=== PATIENT | female | born 1980 | race Caucasian/White ===

== ENCOUNTER 2017-05-17 17:36 | Emergency (ER) | payer MEDICAID ==
[~2017-05-17] VITALS: Ht 165.1 cm; Wt 67.5 kg
[~2017-05-17 17:36] MED LIST: HYDR-3498 PO; IBUP-1542 PO; MAG-19 PO; OMEP20CA9 PO; ONDA4TAB35 PO; PENI500T PO; PREN1TAB17 PO
[2017-05-17 17:55] VITALS: Ht 165.1 cm; Wt 67.5 kg
[2017-05-17] MEDS ORDERED: SOD CHLORIDE 0.9% 1,000 ML IV STA (19:47)
[2017-05-17] MEDS ORDERED: KETOROLAC 30 MG INJ IV STA (19:47)
[2017-05-17] MEDS ORDERED: DIPHENHYDRAMINE 50 MG INJ IV STA (19:47)
[2017-05-17] MEDS ORDERED: METOCLOPRAMIDE 10 MG INJ IV STA (19:47)
[2017-05-17 20:28] LABS: ADD UMIC YES; UR ASCORBIC ACID NEGATIVE (NEGATIVE); UR BILIRUBIN (Dip) NEGATIVE (NEGATIVE); UR BLOOD (Dip) 2+ mg/dL (NEGATIVE); UR CLARITY CLEAR (CLEAR); UR COLOR YELLOW (YELLOW); UR GLUCOSE (Dip) NEGATIVE (NEGATIVE); UR KETONES (Dip) NEGATIVE (NEGATIVE); UR LEUKOCYTE ESTERASE (Dip) NEGATIVE Leu/ul (NEGATIVE); UR MUCUS MODERATE /HPF (NONE SEEN); UR NITRITE (Dip) NEGATIVE (NEGATIVE); UR RBC 46 /HPF (0-5); UR SPECIFIC GRAVITY (Dip) 1.013 (1.003-1.030); UR SQUAMOUS EPITHELIAL CELL FEW /HPF (FEW); UR TOTAL PROTEIN (Dip) NEGATIVE (NEGATIVE); UR UROBILINOGEN (Dip) NEGATIVE (NEGATIVE)
--- NOTE | 2017-05-17 20:38 | RADRPT ---
PROCEDURE: Noncontrast CT Head. CLINICAL INDICATION: Headache TECHNIQUE: Noncontrast CT of the head was obtained. The administered radiation dose was CTDI vol = 45.01 mGy, DLP = 720.23 mGy-cm. One or more of the following dose reduction techniques were used: Au tomated exposure control, Adjustment of the mA and/or kV according to patient size, or Use of iterat yola reconstruction technique. COMPARISON: There are no similar studies submitted for comparison. FINDINGS: There is no acute intracranial hemorrhage, midline shift, or mass effect. No extra-axial collection is seen. The cerebral lorenzo-white matter differentiation appears preserved. The cerebral sulci and ve ntricles are within normal limits in size and configuration for patient's age. The cerebral attenuat ion is within normal limits. The brainstem and cerebellum are grossly unremarkable. The basal cister ns are preserved. The visualized paranasal sinuses and mastoid air cells are clear. No acute fractur e or suspicious osseous lesion is identified. IMPRESSION: No evidence of an acute intracranial process. Unremarkable noncontrast CT of the brain. RPTAT: AA Physician Carlos Date Time Electronically viewed and signed by Physician Carlos on 05/17/2017 20:38 KRISTAL/
[2017-05-17] MEDS ORDERED: NAPR-260 PO (20:47)
--- NOTE | 2017-05-17 20:47 | ERD ---
ER Documentation Chief Complaint Date/Time DATE: 05/17/17 Chief Complaint Headache HPI The patient is a 37-year-old female who presents to the Emergency Department with complaint of a headache. The patient reports that her pain began at 12:00 pm today, and has become gradually worse since onset. She notes that the pain is mostly localized to the right side of the head, and radiates occipitally. She admits to associated photophobia, phonophobia and nausea, with 5 episodes of nonbilious, nonbloody emesis since onset of the headache. Otherwise, she denies any visual changes, diplopia, blurred vision or vision loss. Denies neck pain or neck stiffness. Denies fevers, sweats, chills, confusion, or change in mentation. Denies diarrhea. Denies dysuria, hematuria, flank pain. Denies any new rashes. The patient notes that she has not experienced a headache similar to this in the past, and therefore presented to the ED for evaluation and pain relief. She took a dose of Tylenol at 2:00 pm today, but has not taken any medication since. No other complaints at this time. ROS All systems reviewed and are negative except as per history of present illness. Medications Home Meds Active Scripts Naproxen* (Naprosyn*) 500 Mg Tablet, 500 MG PO BID Y for PAIN AND/OR INFLAMMATION, #30 TAB Prov:JESSICA GARIBAY PA-C 05/17/17 Ibuprofen* (Motrin*) 600 Mg Tab, 600 MG PO Q6H Y for PAIN AND OR ELEVATED TEMP, #30 TAB Prov:SARAH BETH ISAACS MD 05/11/16 Penicillin V Potassium* (Penicillin V K*) 500 Mg Tab, 500 MG PO QID for 7 Days, TAB Prov:SARAH BETH ISAACS MD 05/11/16 Hydrocodone Bit-Acetaminophen* ([place]*) 5-325 Mg Tab, 1 TAB PO Q6 Y for PAIN, # 20 TAB Prov:PARISH DEL RIO NP 03/01/16 Ondansetron Hcl* (Zofran* ODT) 4 mg -ODT Tab.disper, 4 MG PO Q8 Y for NAUSEA AND /OR VOMITING, #30 TAB Prov:PARISH DEL RIO NP 03/01/16 Magaldrate/Simethicone* (Mylanta*) 355 Ml Susp, 30 ML PO QID Y for GASTROINTESTINAL UPSET, #1 BOTTLE Prov:PARISH DEL RIO. MANAGER SOUND 03/01/16 Omeprazole* (Prilosec*) 20 Mg Capsule.dr, 20 MG PO DAILY, #30 CAP Prov:PARISH DEL RIO. MANAGER SOUND 03/01/16 Omeprazole* (Prilosec*) 20 Mg Capsule.dr, 20 MG PO BID for 30 Days, CAP Prov:COREEN PINO Mayra 03/20/15 Ondansetron Hcl* (Zofran* ODT) 4 mg -ODT Tab.disper, 4 MG PO Q6 Y for NAUSEA AND /OR VOMITING, #10 TAB Prov:COREEN PINO Mayra 03/20/15 Reported Medications Vit-Iron Fumarate-FA ( Tablet) 1 Each Tablet, 1 EACH PO DAILY 01/07/13 Allergies Allergies: Coded Allergies: No Known Drug Allergies (Verified Allergy, Unknown, 11/27/14) PMhx/Soc Medical and Surgical Hx: pt denies Medical Hx, pt denies Surgical Hx History of Surgery: No Anesthesia Reaction: No Hx Neurological Disorder: No Hx Respiratory Disorders: No Hx Cardiac Disorders: No Hx Psychiatric Problems: No Hx Miscellaneous Medical Probl: No Hx Alcohol Use: No Hx Substance Use: No Hx Tobacco Use: No Smoking Status: Never smoker Physical Exam Vitals Vital Signs Date Time Temp Pulse Resp B/P Pulse Ox O2 Delivery O2 Flow Rate FiO2 05/17/17 21:00 98.5 91 20 125/65 98 Room Air 05/17/17 17:55 98.2 70 19 130/77 98 Physical Exam GENERAL: Well-developed, well-nourished, in no acute distress HEENT: Head is normocephalic, atraumatic. No scleral pallor or icterus. Pupils equal, round and reactive to light. Extraocular movements intact. Conjunctiva pink. Moist mucous membranes. NECK: Supple. No masses, no tenderness, no lymphadenopathy. Trachea midline. No nuchal rigidity. Full range of motion. RESPIRATORY: Lungs are clear to auscultation bilaterally. Equal breath sounds. Normal expiratory effort. CARDIOVASCULAR: Regular rate and rhythm. S1 and S2 normal. No murmurs, rubs, or gallops. GASTROINTESTINAL: Abdomen is soft, nontender, and nondistended. BACK: No midline tenderness. EXTREMITIES: No clubbing, cyanosis, or edema. Normal skin perfusion. Moving all extremities. Muscle tone is normal. No focal swelling or erythema. Distal pulses are palpable, 2+ bilaterally. Capillary refill is less than 2 seconds. NEUROLOGIC: The patient is alert, awake, and oriented x 3. No focal neurologic deficits. Cranial nerves II-XII intact. Gait is observed and normal. There is no ataxia. Motor normal in all extremities. Sensation grossly intact. Coordination normal. Speech is normal. Normal pizza driver strength bilaterally. INTEGUMENT: Skin is clean, dry and intact. No rashes, lesions or petechiae present. Normal turgor. PSYCHIATRIC: Appropriate; Cooperative. Results 24 hrs Laboratory Tests Test 05/17/17 20:00 Urine Color YELLOW Urine Clarity CLEAR Urine pH 7.0 Urine Specific [place] 1.013 Urine Ketones NEGATIVEmg/dL Urine Nitrite NEGATIVEmg/dL Urine Bilirubin NEGATIVEmg/dL Urine Urobilinogen NEGATIVEmg/dL Urine Leukocyte Esterase NEGATIVELeu/ul Urine Microscopic RBC 46/HPF Urine Microscopic WBC 2/HPF Urine Squamous Epithelial Cells FEW/HPF Urine Mucus MODERATE/HPF Urine Hemoglobin 2+mg/dL Urine Glucose NEGATIVEmg/dL Urine Total Protein NEGATIVEmg/dl Current Medications Medications (Trade) Dose Ordered Sig/Saira Route PRN Reason Start Time Stop Time Status Last Admin Dose Admin Sodium Chloride (NS) 1,000 ml @ 1,000 mls/hr Q1H STAT IV 05/17/17 19:47 05/17/17 20:46 DC 05/17/17 20:01 Metoclopramide HCl (Reglan) 10 mg ONCE STAT IV 05/17/17 19:47 05/17/17 19:49 DC 05/17/17 20:00 Ketorolac Tromethamine (Toradol) 30 mg ONCE STAT IV 05/17/17 19:47 05/17/17 19:49 DC 05/17/17 20:00 Diphenhydramine HCl (Benadryl) 25 mg ONCE STAT IV 05/17/17 19:47 05/17/17 19:49 DC 05/17/17 20:00 Procedures/[facility] EMERGENCY DEPARTMENT COURSE: The patient's case was reviewed and discussed with Dr. Wade, who agrees with the plan of care including labs, treatment and advancing imaging as appropriate. The patient was stable throughout the ED course. IV access established by nursing staff. Urinalysis was performed. Fluids, Toradol, Reglan, Bendaryl administered. On reevaluation, the patient reports no new complaints, and completely resolved headache. DIAGNOSTIC TESTS AND INTERPRETATION: PROCEDURE: Noncontrast CT Head. CLINICAL INDICATION: Headache TECHNIQUE: Noncontrast CT of the head was obtained. The administered radiation dose was CTDI vol = 45.01 mGy, DLP = 720.23 mGy-cm. One or more of the following dose reduction techniques were used: Automated exposure control, Adjustment of the mA and/or kV according to patient size, or Use of iterative reconstruction technique. COMPARISON: There are no similar studies submitted for comparison. FINDINGS:There is no acute intracranial hemorrhage, midline shift, or mass effect. No extra-axial collection is seen. The cerebral lorenzo-white matter differentiation appears preserved. The cerebral sulci and ventricles are within normal limits in size and configuration for patient's age. The cerebral attenuation is within normal limits. The brainstem and cerebellum are grossly unremarkable. The basal cisterns are preserved. The visualized paranasal sinuses and mastoid air cells are clear. No acute fracture or suspicious osseous lesion is identified. IMPRESSION:No evidence of an acute intracranial process. Unremarkable noncontrast CT of the brain. Physician Carlos Date Time Electronically viewed and signed by Physician Carlos on 05/17/2017 20: 38 MEDICAL DECISION MAKING:This is a 37-year-old female presenting to the emergency department with a headache. The patient had no significant abnormalities on physical examination, exhibited no altered mental status, neurologic deficits or meningeal signs. The differential diagnosis includes, but is not limited to, subarachnoid hemorrhage, intracerebral bleeding, cerebral aneurysm, meningitis, encephalitis, brain abscess, embolic stroke, brain tumor, temporal arteritis, sinusitis, migraine headache, tension headache , acute glaucoma, cluster headache, pseudotumor cerebri, encephalopathy. No acute abnormalities were noted on head CT ordered. Her condition improved during her stay. After rest and administration of Toradol, Benadryl, Reglan and a liter of fluids the patient reports no new complaints and significantly decreased pain. Upon my review and interpretation of the patient's presentation and overall ER course, I believe the patient's symptoms are most consistent with a headache. Suspect benign etiology. Doubt meningitis, patients neck is supple, no fevers, no meningismus. Doubt TBI, no preceding trauma. Doubt subarachnoid hemorrhage, headache was not [id number], neck is supple. Doubt temporal arteritis, no jaw claudication, no visual changes. Doubt acute glaucoma, no consistent visual or ocular symptoms. Doubt mass or CVA based on neurologic examination. At this time, the patient is in stable condition and therefore can be discharged home with a prescription for Naproxen and given strict return precautions for signs of deteriorating or worsening condition. She is advised to follow up with her primary care provider for reevaluation and further management within 2-3 days, or to return to the ER sooner for any worsening symptoms. I shared my medical decision making and plan with the patient at length and in great detail, and the patient verbally understands and agrees with the plan for further observation and care as an outpatient. At the time of discharge, all questions were answered. Departure Diagnosis: Primary Impression: Headache Headache type: unspecified Headache chronicity pattern: acute headache Intractability: not intractable Qualified Code: R51 - Acute nonintractable headache, unspecified headache type Condition: Stable Patient Instructions: Headache, Unspecified, Self-Care for Headaches Additional Instructions: Llame al doctor MAANA y brandie ruddy ANTONY PARA DENTRO DE 2-3 PITTS.Dgale a la secretaria que nosotros le instruimos hacer esta antony.Avise o llame si day condicin se empeora antes de la antony. Regresa aqui si peor o no mejor. JESSICA GARIBAY PA-C May 17, 2017 20:47
[2017-05-17 21:00] VITALS: BP 125/65; PULSE 91; RESP 20; TEMP 98.5
== END 2017-05-17 21:01 | disposition home or self-care (01) ==
LOC: FTE 17:36
DX: R51 Headache (principal)
CPT/HCPCS: 70450; 81001; 96374; 96375; J1200; J1885; J2765; J7030; Z7502

== ENCOUNTER 2017-07-12 19:53 | Emergency (ER) | payer MEDICAID ==
[~2017-07-12] VITALS: Ht 165.1 cm; Wt 69.3 kg
[~2017-07-12 19:53] MED LIST changes: +NAPR-260 PO
[2017-07-12 19:55] VITALS: Ht 165.1 cm; Wt 69.3 kg
[2017-07-12] MEDS ORDERED: IBUP400T22 PO (22:12)
[2017-07-12] MEDS ORDERED: AZIT500T3 PO (22:12)
--- NOTE | 2017-07-12 23:00 | ERD ---
ER Documentation Chief Complaint Chief Complaint c/o bilateral ear pain x 1 wk. No drainage. HPI This is a 37-year-old female presenting to emergency department with bilateral earache, cough, nasal congestion, headache and facial pain 1 week. Patient states she feels congested. Patient has bilateral throbbing earache. No otorrhea. No pruritus. No rash. Cough is dry and nonproductive. Patient also complains of headache and facial pain. Headache is generalized and nonspecific. No weakness or fatigue. No vomiting. No vision changes. No slurred speech. Patient did not take any medications at home. ROS All systems reviewed and are negative except as per history of present illness. Medications Home Meds Active Scripts Ibuprofen* (Motrin*) 400 Mg Tab, 400 MG PO Q6, #30 TAB Prov:BENITO OCAMPO NP 07/12/17 Azithromycin* (Zithromax*) 500 Mg Tablet, 500 MG PO DAILY for 3 Days, TAB Prov:BENITO OCAMPO NP 07/12/17 Naproxen* (Naprosyn*) 500 Mg Tablet, 500 MG PO BID Y for PAIN AND/OR INFLAMMATION, #30 TAB Prov:JESSICA GARIBAY PA-C 05/17/17 Ibuprofen* (Motrin*) 600 Mg Tab, 600 MG PO Q6H Y for PAIN AND OR ELEVATED TEMP, #30 TAB Prov:SARAH BETH ISAACS MD 05/11/16 Penicillin V Potassium* (Penicillin V K*) 500 Mg Tab, 500 MG PO QID for 7 Days, TAB Prov:ASRAH BETH ISAACS MD 05/11/16 Hydrocodone Bit-Acetaminophen* ([place]*) 5-325 Mg Tab, 1 TAB PO Q6 Y for PAIN, # 20 TAB Prov:PARISH DEL RIO NP 03/01/16 Ondansetron Hcl* (Zofran* ODT) 4 mg -ODT Tab.disper, 4 MG PO Q8 Y for NAUSEA AND /OR VOMITING, #30 TAB Prov:PARISH DEL RIO NP 03/01/16 Magaldrate/Simethicone* (Mylanta*) 355 Ml Susp, 30 ML PO QID Y for GASTROINTESTINAL UPSET, #1 BOTTLE Prov:PARISH DEL RIO NP 03/01/16 Omeprazole* (Prilosec*) 20 Mg Capsule.dr, 20 MG PO DAILY, #30 CAP Prov:QUANGADRIANVinita Carcamo NP 03/01/16 Omeprazole* (Prilosec*) 20 Mg Capsule.dr, 20 MG PO BID for 30 Days, CAP Prov:COREEN PINO 03/20/15 Ondansetron Hcl* (Zofran* ODT) 4 mg -ODT Tab.disper, 4 MG PO Q6 Y for NAUSEA AND /OR VOMITING, #10 TAB Prov:COREEN PINO 03/20/15 Reported Medications Vit-Iron Fumarate-FA ( Tablet) 1 Each Tablet, 1 EACH PO DAILY 01/07/13 Allergies Allergies: Coded Allergies: No Known Drug Allergies (Verified Allergy, Unknown, 11/27/14) PMhx/Soc Medical and Surgical Hx: pt denies Medical Hx, pt denies Surgical Hx History of Surgery: No Anesthesia Reaction: No Hx Neurological Disorder: No Hx Respiratory Disorders: No Hx Cardiac Disorders: No Hx Psychiatric Problems: No Hx Miscellaneous Medical Probl: No Hx Alcohol Use: No Hx Substance Use: No Hx Tobacco Use: No Smoking Status: Never smoker Physical Exam Vitals Vital Signs Date Time Temp Pulse Resp B/P Pulse Ox O2 Delivery O2 Flow Rate FiO2 07/12/17 19:55 96.8 63 18 124/79 100 Physical Exam Const: No acute distress, alert Head: Atraumatic Eyes: Normal Conjunctiva, PERRL, EOMs intact. ENT: Normal External Ears, Nose and Mouth. No erythema or exudate posterior pharynx. TMs normal bilaterally. Tenderness to palpation of maxillary and frontal sinuses. Neck: Full range of motion..~ No meningismus. Resp: Clear to auscultation bilaterally. No wheezing, rhonchi or crackles. No stridor or labored breathing Cardio: Regular rate and rhythm, no murmurs Abd: Soft, non tender, non distended. Normal bowel sounds Skin: No petechiae or rashes Back: No midline or flank tenderness Ext: No cyanosis, or edema Neur: Awake and alert, CN intact 2-12 Psych: Normal Mood and Affect Procedures/MDM MDM: This is a 37-year-old female presenting to emerge department with bilateral earache, headache and facial pain 1 week. Patient is afebrile vital signs are stable. No neuro deficits. Patient denies this being the worst headache she is ever had. Patient did not take any medications at home. Patient symptoms most consistent with acute sinusitis. A CT head was done in 2016 that shows no evidence of an acute intracranial process. Unremarkable noncontrast CT of the brain. Vitals remain stable. No neuro deficits. No fevers or chills. No diplopia, loss of vision or blurry vision. No photophobia. No trauma to head or fall. No loss of consciousness. No nausea or vomiting. No confusion or altered mental status. Patient denies ataxic gait , slurred speech, numbness of the face or body, weakness, clumsiness, or incoordination. Low suspicion for CVA, TIA, meningitis, subdural hematoma, intracranial hemorrhage or mass. Differential diagnosis includes but not limited to tension headache, migraine headache, cluster headache, sinus headache, sinusitis, trigeminal neuralgia, herpes zoster and postherpetic neuralgia. Patient is appropriate for outpatient management will be given prescription for Zithromax and Ibuprofen. Instructed patient to follow-up with primary care provider in the next 2-3 days for reassessment. Resources provided. Return to ED for any high fever, chest pain, difficulty breathing, shortness breath, wheezing, vomiting, diarrhea, abdominal pain or any new or worsening symptoms. Patient verbalizes understanding. All questions answered at discharge. Faroese translation used during this encounter. Disclaimer: Inadvertent spelling and grammatical errors are likely due to EHR/ dictation software use and do not reflect on the overall quality of patient care. Also, please note that the electronic time recorded on this note does not necessarily reflect the actual time of the patient encounter. Departure Diagnosis: Primary Impression: Sinusitis Sinusitis location: unspecified location Chronicity: acute Recurrence: non -recurrent Qualified Code: J01.90 - Acute non-recurrent sinusitis, unspecified location Condition: Stable Patient Instructions: Sinus Headache, Sinusitis, Abx Tx [facility] Usted se garcia hecho un examen mdico de control que le indica que no est en ruddy condicin que requiera tratamiento urgente en el Departamento de Emergencia. Un estudio ms profundo y el tratamiento de day condicin pueden esperar sin ningn riesgo hasta que usted sea atendida/o en el consultorio de day mdico o ruddy cl diana. Es responsabilidad suya arreglar ruddy antony para el seguimiento del maria l. MANEJO DE CONDICIONES NO URGENTES EN EL FUTURO 1) Si usted tiene un mdico de atencin primaria: Usted debera llamar a day mdico de atencin primaria antes de venir al departamento de emergencia. Despus de las horas de consultorio, day doctor o day asociado/a est disponible por telfono. El mdico o enfermero de dana en el servicio telefnico puede asesorarle por tiffany medio para atender el problema, o maria l contrario se puede programar ruddy antony. 2) Si usted no tiene un mdico de atencin primaria: Llame al mdico o clnica de referencia que aparece abajo chalino las horas de consultorio para hacer ruddy antony para que le vean. CLINICAS: [facility] [phone] [facility] [phone] [facility] [phone] [facility]. [place] [phone] [facility] [place] [address] [phone] [facility]. [phone] [facility]. [facility] () Usted se garcia hecho un examen mdico de control que le indica que no est en ruddy condicin que requiera tratamiento urgente en el Departamento de Emergencia. Un estudio ms profundo y el tratamiento de day condicin pueden esperar sin ningn riesgo hasta que usted sea atendida/o en el consultorio de day mdico o ruddy cl diana. Es responsabilidad suya arreglar ruddy antony para el seguimiento del maria l. MANEJO DE CONDICIONES NO URGENTES EN EL FUTURO 1) Si usted tiene un mdico de atencin primaria: Usted debera llamar a day mdico de atencin primaria antes de venir al departamento de emergencia. Despus de las horas de consultorio, day doctor o day asociado/a est disponible por telfono. El mdico o enfermero de dana en el servicio telefnico puede asesorarle por tiffany medio para atender el problema, o maria l contrario se puede programar ruddy antony. 2) Si usted no tiene un mdico de atencin primaria: Llame al mdico o condado institucions de referencia que aparece abajo chalino las horas de consultorio para hacer ruddy antony para que le vean. SI USTED NO PUEDE PAGAR PARA NICOLE UN MEDICO puede ir a: [facility] [id number] [place], [place] [id number] [place] [address] [address] [place] [address] [facility] [address] [place] [address] PARA ANA [facility] [address] [place], [place] [id number] Additional Instructions: Llame al doctor MAANA y brandie ruddy ANTONY PARA DENTRO DE 2-3 PITTS.Dgale a la secretaria que nosotros le instruimos hacer esta antony.Avise o llame si day condicin se empeora antes de la natony. Regresa aqui si peor o no mejor. Vuelva a Ed para cualquier fiebre erika, dolor en el pecho, dificultad para respirar, respiracin entrecortada, sibilancias, vmitos, diarrea, dolor abdominal o cualquier sntoma nuevo o empeoramiento. BNEITO OCAMPO NP Jul 12, 2017 23:00
--- NOTE | 2017-07-12 23:00 | ERD ---
ER Documentation Chief Complaint Chief Complaint c/o bilateral ear pain x 1 wk. No drainage. HPI This is a 37-year-old female presenting to emergency department with bilateral earache, cough, nasal congestion, headache and facial pain 1 week. Patient states she feels congested. Patient has bilateral throbbing earache. No otorrhea. No pruritus. No rash. Cough is dry and nonproductive. Patient also complains of headache and facial pain. Headache is generalized and nonspecific. No weakness or fatigue. No vomiting. No vision changes. No slurred speech. Patient did not take any medications at home. ROS All systems reviewed and are negative except as per history of present illness. Medications Home Meds Active Scripts Ibuprofen* (Motrin*) 400 Mg Tab, 400 MG PO Q6, #30 TAB Prov:BENITO OCAMPO NP 07/12/17 Azithromycin* (Zithromax*) 500 Mg Tablet, 500 MG PO DAILY for 3 Days, TAB Prov:BENITO OCAMPO NP 07/12/17 Naproxen* (Naprosyn*) 500 Mg Tablet, 500 MG PO BID Y for PAIN AND/OR INFLAMMATION, #30 TAB Prov:JESSICA GARIBAY PA-C 05/17/17 Ibuprofen* (Motrin*) 600 Mg Tab, 600 MG PO Q6H Y for PAIN AND OR ELEVATED TEMP, #30 TAB Prov:SARAH BETH ISAACS MD 05/11/16 Penicillin V Potassium* (Penicillin V K*) 500 Mg Tab, 500 MG PO QID for 7 Days, TAB Prov:SARAH BETH ISAACS MD 05/11/16 Hydrocodone Bit-Acetaminophen* ([place]*) 5-325 Mg Tab, 1 TAB PO Q6 Y for PAIN, # 20 TAB Prov:PARISH DEL RIO NP 03/01/16 Ondansetron Hcl* (Zofran* ODT) 4 mg -ODT Tab.disper, 4 MG PO Q8 Y for NAUSEA AND /OR VOMITING, #30 TAB Prov:PARISH DEL RIO NP 03/01/16 Magaldrate/Simethicone* (Mylanta*) 355 Ml Susp, 30 ML PO QID Y for GASTROINTESTINAL UPSET, #1 BOTTLE Prov:PARISH DEL RIO NP 03/01/16 Omeprazole* (Prilosec*) 20 Mg Capsule.dr, 20 MG PO DAILY, #30 CAP Prov:QUANGADRIANVinita Carcamo NP 03/01/16 Omeprazole* (Prilosec*) 20 Mg Capsule.dr, 20 MG PO BID for 30 Days, CAP Prov:COREEN PINO 03/20/15 Ondansetron Hcl* (Zofran* ODT) 4 mg -ODT Tab.disper, 4 MG PO Q6 Y for NAUSEA AND /OR VOMITING, #10 TAB Prov:COREEN PINO 03/20/15 Reported Medications Vit-Iron Fumarate-FA ( Tablet) 1 Each Tablet, 1 EACH PO DAILY 01/07/13 Allergies Allergies: Coded Allergies: No Known Drug Allergies (Verified Allergy, Unknown, 11/27/14) PMhx/Soc Medical and Surgical Hx: pt denies Medical Hx, pt denies Surgical Hx History of Surgery: No Anesthesia Reaction: No Hx Neurological Disorder: No Hx Respiratory Disorders: No Hx Cardiac Disorders: No Hx Psychiatric Problems: No Hx Miscellaneous Medical Probl: No Hx Alcohol Use: No Hx Substance Use: No Hx Tobacco Use: No Smoking Status: Never smoker Physical Exam Vitals Vital Signs Date Time Temp Pulse Resp B/P Pulse Ox O2 Delivery O2 Flow Rate FiO2 07/12/17 19:55 96.8 63 18 124/79 100 Physical Exam Const: No acute distress, alert Head: Atraumatic Eyes: Normal Conjunctiva, PERRL, EOMs intact. ENT: Normal External Ears, Nose and Mouth. No erythema or exudate posterior pharynx. TMs normal bilaterally. Tenderness to palpation of maxillary and frontal sinuses. Neck: Full range of motion..~ No meningismus. Resp: Clear to auscultation bilaterally. No wheezing, rhonchi or crackles. No stridor or labored breathing Cardio: Regular rate and rhythm, no murmurs Abd: Soft, non tender, non distended. Normal bowel sounds Skin: No petechiae or rashes Back: No midline or flank tenderness Ext: No cyanosis, or edema Neur: Awake and alert, CN intact 2-12 Psych: Normal Mood and Affect Procedures/MDM MDM: This is a 37-year-old female presenting to emerge department with bilateral earache, headache and facial pain 1 week. Patient is afebrile vital signs are stable. No neuro deficits. Patient denies this being the worst headache she is ever had. Patient did not take any medications at home. Patient symptoms most consistent with acute sinusitis. A CT head was done in 2016 that shows no evidence of an acute intracranial process. Unremarkable noncontrast CT of the brain. Vitals remain stable. No neuro deficits. No fevers or chills. No diplopia, loss of vision or blurry vision. No photophobia. No trauma to head or fall. No loss of consciousness. No nausea or vomiting. No confusion or altered mental status. Patient denies ataxic gait , slurred speech, numbness of the face or body, weakness, clumsiness, or incoordination. Low suspicion for CVA, TIA, meningitis, subdural hematoma, intracranial hemorrhage or mass. Differential diagnosis includes but not limited to tension headache, migraine headache, cluster headache, sinus headache, sinusitis, trigeminal neuralgia, herpes zoster and postherpetic neuralgia. Patient is appropriate for outpatient management will be given prescription for Zithromax and Ibuprofen. Instructed patient to follow-up with primary care provider in the next 2-3 days for reassessment. Resources provided. Return to ED for any high fever, chest pain, difficulty breathing, shortness breath, wheezing, vomiting, diarrhea, abdominal pain or any new or worsening symptoms. Patient verbalizes understanding. All questions answered at discharge. Persian translation used during this encounter. Disclaimer: Inadvertent spelling and grammatical errors are likely due to EHR/ dictation software use and do not reflect on the overall quality of patient care. Also, please note that the electronic time recorded on this note does not necessarily reflect the actual time of the patient encounter. Departure Diagnosis: Primary Impression: Sinusitis Sinusitis location: unspecified location Chronicity: acute Recurrence: non -recurrent Qualified Code: J01.90 - Acute non-recurrent sinusitis, unspecified location Condition: Stable Patient Instructions: Sinus Headache, Sinusitis, Abx Tx Referrals: [facility] Usted se garcia hecho un examen mdico de control que le indica que no est en ruddy condicin que requiera tratamiento urgente en el Departamento de Emergencia. Un estudio ms profundo y el tratamiento de day condicin pueden esperar sin ningn riesgo hasta que usted sea atendida/o en el consultorio de day mdico o ruddy cl diana. Es responsabilidad suya arreglar ruddy antony para el seguimiento del maria l. MANEJO DE CONDICIONES NO URGENTES EN EL FUTURO 1) Si usted tiene un mdico de atencin primaria: Usted debera llamar a day mdico de atencin primaria antes de venir al departamento de emergencia. Despus de las horas de consultorio, day doctor o day asociado/a est disponible por telfono. El mdico o enfermero de dana en el servicio telefnico puede asesorarle por tiffany medio para atender el problema, o maria l contrario se puede programar ruddy antony. 2) Si usted no tiene un mdico de atencin primaria: Llame al mdico o clnica de referencia que aparece abajo chalino las horas de consultorio para hacer ruddy antony para que le vean. CLINICAS: [facility] [phone] [facility]., [facility] [phone] [address] [facility]. [facility] [phone] [address] [facility]. [place] [id number] [phone] [facility] [place] [address] [phone] [facility]. [phone] [facility]. [facility] () Usted se garcia hecho un examen mdico de control que le indica que no est en ruddy condicin que requiera tratamiento urgente en el Departamento de Emergencia. Un estudio ms profundo y el tratamiento de day condicin pueden esperar sin ningn riesgo hasta que usted sea atendida/o en el consultorio de day mdico o rudyd cl diana. Es responsabilidad suya arreglar ruddy antony para el seguimiento del maria l. MANEJO DE CONDICIONES NO URGENTES EN EL FUTURO 1) Si usted tiene un mdico de atencin primaria: Usted debera llamar a day mdico de atencin primaria antes de venir al departamento de emergencia. Despus de las horas de consultorio, day doctor o day asociado/a est disponible por telfono. El mdico o enfermero de dana en el servicio telefnico puede asesorarle por tiffany medio para atender el problema, o maria l contrario se puede programar ruddy antony. 2) Si usted no tiene un mdico de atencin primaria: Llame al mdico o condado institucions de referencia que aparece abajo chalino las horas de consultorio para hacer ruddy antony para que le vean. SI USTED NO PUEDE PAGAR PARA NICOLE UN MEDICO puede ir a: [facility] [address] [place], [place] [address] [place] [address] [address] [place] [address] [facility] [address] [place] [address] PARA ANA LAURA [facility] [address] [place], [place] [id number] Additional Instructions: Llame al doctor MAANA y brandie ruddy ANTONY PARA DENTRO DE 2-3 PITTS.Dgale a la secretaria que nosotros le instruimos hacer esta antony.Avise o llame si day condicin se empeora antes de la antony. Regresa aqui si peor o no mejor. Vuelva a Ed para cualquier fiebre erika, dolor en el pecho, dificultad para respirar, respiracin entrecortada, sibilancias, vmitos, diarrea, dolor abdominal o cualquier sntoma nuevo o empeoramiento. BENITO OCAMPO NP Jul 12, 2017 23:00
--- NOTE | 2017-07-12 23:00 | ERD ---
ER Documentation Chief Complaint Chief Complaint c/o bilateral ear pain x 1 wk. No drainage. HPI This is a 37-year-old female presenting to emergency department with bilateral earache, cough, nasal congestion, headache and facial pain 1 week. Patient states she feels congested. Patient has bilateral throbbing earache. No otorrhea. No pruritus. No rash. Cough is dry and nonproductive. Patient also complains of headache and facial pain. Headache is generalized and nonspecific. No weakness or fatigue. No vomiting. No vision changes. No slurred speech. Patient did not take any medications at home. ROS All systems reviewed and are negative except as per history of present illness. Medications Home Meds Active Scripts Ibuprofen* (Motrin*) 400 Mg Tab, 400 MG PO Q6, #30 TAB Prov:BENITO OCAMPO NP 07/12/17 Azithromycin* (Zithromax*) 500 Mg Tablet, 500 MG PO DAILY for 3 Days, TAB Prov:BENITO OCAMPO NP 07/12/17 Naproxen* (Naprosyn*) 500 Mg Tablet, 500 MG PO BID Y for PAIN AND/OR INFLAMMATION, #30 TAB Prov:JESSICA GARIBAY PA-C 05/17/17 Ibuprofen* (Motrin*) 600 Mg Tab, 600 MG PO Q6H Y for PAIN AND OR ELEVATED TEMP, #30 TAB Prov:SARAH BETH ISAACS MD 05/11/16 Penicillin V Potassium* (Penicillin V K*) 500 Mg Tab, 500 MG PO QID for 7 Days, TAB Prov:SARAH BETH ISAACS MD 05/11/16 Hydrocodone Bit-Acetaminophen* ([place]*) 5-325 Mg Tab, 1 TAB PO Q6 Y for PAIN, # 20 TAB Prov:PARISH DEL RIO NP 03/01/16 Ondansetron Hcl* (Zofran* ODT) 4 mg -ODT Tab.disper, 4 MG PO Q8 Y for NAUSEA AND /OR VOMITING, #30 TAB Prov:PARISH DEL RIO NP 03/01/16 Magaldrate/Simethicone* (Mylanta*) 355 Ml Susp, 30 ML PO QID Y for GASTROINTESTINAL UPSET, #1 BOTTLE Prov:PARISH DEL RIO NP 03/01/16 Omeprazole* (Prilosec*) 20 Mg Capsule.dr, 20 MG PO DAILY, #30 CAP Prov:QUANGADRIANVinita Carcamo NP 03/01/16 Omeprazole* (Prilosec*) 20 Mg Capsule.dr, 20 MG PO BID for 30 Days, CAP Prov:COREEN PINO 03/20/15 Ondansetron Hcl* (Zofran* ODT) 4 mg -ODT Tab.disper, 4 MG PO Q6 Y for NAUSEA AND /OR VOMITING, #10 TAB Prov:COREEN PINO 03/20/15 Reported Medications Vit-Iron Fumarate-FA ( Tablet) 1 Each Tablet, 1 EACH PO DAILY 01/07/13 Allergies Allergies: Coded Allergies: No Known Drug Allergies (Verified Allergy, Unknown, 11/27/14) PMhx/Soc Medical and Surgical Hx: pt denies Medical Hx, pt denies Surgical Hx History of Surgery: No Anesthesia Reaction: No Hx Neurological Disorder: No Hx Respiratory Disorders: No Hx Cardiac Disorders: No Hx Psychiatric Problems: No Hx Miscellaneous Medical Probl: No Hx Alcohol Use: No Hx Substance Use: No Hx Tobacco Use: No Smoking Status: Never smoker Physical Exam Vitals Vital Signs Date Time Temp Pulse Resp B/P Pulse Ox O2 Delivery O2 Flow Rate FiO2 07/12/17 19:55 96.8 63 18 124/79 100 Physical Exam Const: No acute distress, alert Head: Atraumatic Eyes: Normal Conjunctiva, PERRL, EOMs intact. ENT: Normal External Ears, Nose and Mouth. No erythema or exudate posterior pharynx. TMs normal bilaterally. Tenderness to palpation of maxillary and frontal sinuses. Neck: Full range of motion..~ No meningismus. Resp: Clear to auscultation bilaterally. No wheezing, rhonchi or crackles. No stridor or labored breathing Cardio: Regular rate and rhythm, no murmurs Abd: Soft, non tender, non distended. Normal bowel sounds Skin: No petechiae or rashes Back: No midline or flank tenderness Ext: No cyanosis, or edema Neur: Awake and alert, CN intact 2-12 Psych: Normal Mood and Affect Procedures/MDM MDM: This is a 37-year-old female presenting to emerge department with bilateral earache, headache and facial pain 1 week. Patient is afebrile vital signs are stable. No neuro deficits. Patient denies this being the worst headache she is ever had. Patient did not take any medications at home. Patient symptoms most consistent with acute sinusitis. A CT head was done in 2016 that shows no evidence of an acute intracranial process. Unremarkable noncontrast CT of the brain. Vitals remain stable. No neuro deficits. No fevers or chills. No diplopia, loss of vision or blurry vision. No photophobia. No trauma to head or fall. No loss of consciousness. No nausea or vomiting. No confusion or altered mental status. Patient denies ataxic gait , slurred speech, numbness of the face or body, weakness, clumsiness, or incoordination. Low suspicion for CVA, TIA, meningitis, subdural hematoma, intracranial hemorrhage or mass. Differential diagnosis includes but not limited to tension headache, migraine headache, cluster headache, sinus headache, sinusitis, trigeminal neuralgia, herpes zoster and postherpetic neuralgia. Patient is appropriate for outpatient management will be given prescription for Zithromax and Ibuprofen. Instructed patient to follow-up with primary care provider in the next 2-3 days for reassessment. Resources provided. Return to ED for any high fever, chest pain, difficulty breathing, shortness breath, wheezing, vomiting, diarrhea, abdominal pain or any new or worsening symptoms. Patient verbalizes understanding. All questions answered at discharge. Yoruba translation used during this encounter. Disclaimer: Inadvertent spelling and grammatical errors are likely due to EHR/ dictation software use and do not reflect on the overall quality of patient care. Also, please note that the electronic time recorded on this note does not necessarily reflect the actual time of the patient encounter. Departure Diagnosis: Primary Impression: Sinusitis Sinusitis location: unspecified location Chronicity: acute Recurrence: non -recurrent Qualified Code: J01.90 - Acute non-recurrent sinusitis, unspecified location Condition: Stable Patient Instructions: Sinus Headache, Sinusitis, Abx Tx Referrals: [facility] Usted se garcia hecho un examen mdico de control que le indica que no est en ruddy condicin que requiera tratamiento urgente en el Departamento de Emergencia. Un estudio ms profundo y el tratamiento de day condicin pueden esperar sin ningn riesgo hasta que usted sea atendida/o en el consultorio de day mdico o ruddy cl diana. Es responsabilidad suya arreglar ruddy antony para el seguimiento del maria l. MANEJO DE CONDICIONES NO URGENTES EN EL FUTURO 1) Si usted tiene un mdico de atencin primaria: Usted debera llamar a day mdico de atencin primaria antes de venir al departamento de emergencia. Despus de las horas de consultorio, day doctor o day asociado/a est disponible por telfono. El mdico o enfermero de dana en el servicio telefnico puede asesorarle por tiffany medio para atender el problema, o maria l contrario se puede programar ruddy antony. 2) Si usted no tiene un mdico de atencin primaria: Llame al mdico o clnica de referencia que aparece abajo chalino las horas de consultorio para hacer ruddy antony para que le vean. CLINICAS: [facility] [phone] [facility]., [facility] [phone] [facility]. [facility] [phone] [address] [facility]. [place] [phone] [facility] [place] [address] [phone] [facility]. [phone] [facility]. [facility] () Usted se garcia hecho un examen mdico de control que le indica que no est en ruddy condicin que requiera tratamiento urgente en el Departamento de Emergencia. Un estudio ms profundo y el tratamiento de day condicin pueden esperar sin ningn riesgo hasta que usted sea atendida/o en el consultorio de day mdico o ruddy cl diana. Es responsabilidad suya arreglar ruddy antony para el seguimiento del maria l. MANEJO DE CONDICIONES NO URGENTES EN EL FUTURO 1) Si usted tiene un mdico de atencin primaria: Usted debera llamar a day mdico de atencin primaria antes de venir al departamento de emergencia. Despus de las horas de consultorio, day doctor o day asociado/a est disponible por telfono. El mdico o enfermero de dana en el servicio telefnico puede asesorarle por tiffany medio para atender el problema, o maria l contrario se puede programar ruddy antony. 2) Si usted no tiene un mdico de atencin primaria: Llame al mdico o condado institucions de referencia que aparece abajo chalino las horas de consultorio para hacer ruddy antony para que le vean. SI USTED NO PUEDE PAGAR PARA NICOLE UN MEDICO puede ir a: [facility] [address] [place], [place] [id number] [place] [address] [address] [place] [address] [facility] [address] [place] [address] PARA ANA [facility] [address] [place], [place] [id number] Additional Instructions: Llame al doctor MAANA y brandie ruddy ANTONY PARA DENTRO DE 2-3 PITTS.Dgale a la secretaria que nosotros le instruimos hacer esta antony.Avise o llame si day condicin se empeora antes de la antony. Regresa aqui si peor o no mejor. Vuelva a Ed para cualquier fiebre erika, dolor en el pecho, dificultad para respirar, respiracin entrecortada, sibilancias, vmitos, diarrea, dolor abdominal o cualquier sntoma nuevo o empeoramiento. BENITO OCAMPO NP Jul 12, 2017 23:00
[2017-07-13] MEDS ORDERED: NAPR-260 PO (21:50)
== END 2017-07-12 22:36 | disposition home or self-care (01) ==
LOC: FTE 19:53
DX: J01.90 Acute sinusitis, unspecified (principal)
CPT/HCPCS: 99283

== ENCOUNTER 2017-07-13 21:03 | Emergency (ER) | payer MEDICAID ==
[~2017-07-13] VITALS: Ht 165.1 cm; Wt 69.0 kg
[~2017-07-13 21:03] MED LIST changes: +AZIT500T3 PO; +IBUP400T22 PO
[2017-07-13 21:15] VITALS: Ht 165.1 cm; Wt 69.0 kg
[2017-07-13] MEDS ORDERED: NAPROXEN 500 MG TAB PO STA (21:30)
[2017-07-13] MEDS ORDERED: NAPR-260 PO (21:50)
--- NOTE | 2017-07-13 23:22 | ERD ---
ER Documentation Chief Complaint Chief Complaint breast pain x 1 week HPI 37 year old female presents complaining of moderate bilateral breast pain for 1 week. Patient states that she started her menstrual period today. She denies taking any medications for this today. Denies fever ROS All systems reviewed and are negative except as per history of present illness. Medications Home Meds Active Scripts Naproxen* (Naprosyn*) 500 Mg Tablet, 500 MG PO BID Y for PAIN AND/OR INFLAMMATION, #30 TAB Prov:MARY MEJIA PA-C 07/13/17 Ibuprofen* (Motrin*) 400 Mg Tab, 400 MG PO Q6, #30 TAB Prov:BENITO OCAMPO NP 07/12/17 Azithromycin* (Zithromax*) 500 Mg Tablet, 500 MG PO DAILY for 3 Days, TAB Prov:BENITO OCAMPO NP 07/12/17 Naproxen* (Naprosyn*) 500 Mg Tablet, 500 MG PO BID Y for PAIN AND/OR INFLAMMATION, #30 TAB Prov:JESSICA GARIBAY PA-C 05/17/17 Ibuprofen* (Motrin*) 600 Mg Tab, 600 MG PO Q6H Y for PAIN AND OR ELEVATED TEMP, #30 TAB Prov:SARAH BETH ISAACS MD 05/11/16 Penicillin V Potassium* (Penicillin V K*) 500 Mg Tab, 500 MG PO QID for 7 Days, TAB Prov:SARAH BETH ISAACS MD 05/11/16 Hydrocodone Bit-Acetaminophen* ([place]*) 5-325 Mg Tab, 1 TAB PO Q6 Y for PAIN, # 20 TAB Prov:PARISH DEL RIO NP 03/01/16 Ondansetron Hcl* (Zofran* ODT) 4 mg -ODT Tab.disper, 4 MG PO Q8 Y for NAUSEA AND /OR VOMITING, #30 TAB Prov:PARISH DEL RIO NP 03/01/16 Magaldrate/Simethicone* (Mylanta*) 355 Ml Susp, 30 ML PO QID Y for GASTROINTESTINAL UPSET, #1 BOTTLE Prov:PARISH DEL RIO NP 03/01/16 Omeprazole* (Prilosec*) 20 Mg Capsule.dr, 20 MG PO DAILY, #30 CAP Prov:PARISH DEL RIO NP 03/01/16 Omeprazole* (Prilosec*) 20 Mg Capsule., 20 MG PO BID for 30 Days, CAP Prov:COREEN PINO 03/20/15 Ondansetron Hcl* (Zofran* ODT) 4 mg -ODT Tab.disper, 4 MG PO Q6 Y for NAUSEA AND /OR VOMITING, #10 TAB Prov:COREEN PINO 03/20/15 Reported Medications Vit-Iron Fumarate-FA ( Tablet) 1 Each Tablet, 1 EACH PO DAILY 01/07/13 Allergies Allergies: Coded Allergies: No Known Drug Allergies (Verified Allergy, Unknown, 11/27/14) PMhx/Soc Medical and Surgical Hx: pt denies Medical Hx, pt denies Surgical Hx History of Surgery: No Anesthesia Reaction: No Hx Neurological Disorder: No Hx Respiratory Disorders: No Hx Cardiac Disorders: No Hx Psychiatric Problems: No Hx Miscellaneous Medical Probl: No Hx Alcohol Use: No Hx Substance Use: No Hx Tobacco Use: No Smoking Status: Never smoker Physical Exam Vitals Vital Signs Date Time Temp Pulse Resp B/P Pulse Ox O2 Delivery O2 Flow Rate FiO2 07/13/17 21:15 98.1 71 19 121/74 96 Physical Exam Const: [] Head: Atraumatic Eyes: Normal Conjunctiva ENT: Normal External Ears, Nose and Mouth. Neck: Full range of motion..~ No meningismus. Resp: Clear to auscultation bilaterally Cardio: Regular rate and rhythm, no murmurs Breast: TTP BL breast Abd: Soft, non tender, non distended. Normal bowel sounds Skin: No petechiae or rashes Back: No midline or flank tenderness Ext: No cyanosis, or edema Neur: Awake and alert Psych: Normal Mood and Affect Results 24 hrs Current Medications Medications (Trade) Dose Ordered Sig/Saira Route PRN Reason Start Time Stop Time Status Last Admin Dose Admin Naproxen (Naprosyn) 500 mg ONCE STAT PO 07/13/17 21:30 07/13/17 21:31 DC 07/13/17 22:20 Procedures/MDM This is a 37-year-old female presenting to the emergency department complaining of bilateral breast pain for one 1 week likely fibrocystic breast changes. Patient starting her menstrual period today. I have discussed the patient that I would like her to follow-up with her primary care physician to get a mammogram. Patient stable to be discharged home I discussed to return to ER for any worsening symptoms patient understands and agrees with this plan. Departure Diagnosis: Primary Impression: Breast pain Condition: Stable Patient Instructions: Fibrocystic Breast Disease, Presumed Referrals: NO PRIMARY,CARE PHYSICIAN (PCP) Additional Instructions: Visite a day edy galvan para un EXAMEN.Regrese a estas instalaciones si no se mejora mónica esperbamos o mónica le dijimos. [place] toda la medicina malina y mónica se le indic. Regrese a estas instalaciones si no se mejora mónica esperbamos o mónica le dijimos. MARY MEJIA PA-C Jul 13, 2017 23:22
[2017-07-13 23:24] VITALS: BP 119/76; PULSE 60; RESP 22; TEMP 98.8
== END 2017-07-13 23:00 | disposition home or self-care (01) ==
LOC: FTE 21:03
DX: N64.4 Mastodynia (principal)
CPT/HCPCS: Z7502; Z7610; 99283

== ENCOUNTER 2018-01-03 19:01 | Emergency (ER) | END 2018-01-03 20:06 | disposition home or self-care (01) ==

== ENCOUNTER 2018-02-27 00:29 | Emergency (ER) | END 2018-02-27 04:13 | disposition left against medical advice (07) ==

== ENCOUNTER 2018-03-08 23:18 | Emergency (ER) | END 2018-03-09 00:22 | disposition home or self-care (01) ==

== ENCOUNTER 2018-05-20 22:20 | Emergency (ER) | END 2018-05-21 03:40 | disposition home or self-care (01) ==